=== PATIENT | male | born 1975 | race Hispanic/Latino ===

== ENCOUNTER 2022-09-30 06:31 | Emergency (ER) | payer BC, OTHER ==
[~2022-09-30] VITALS: Ht 172.7 cm; Wt 94.3 kg
[2022-09-30] MEDS ORDERED: KETOROLAC 30MG VIAL (30MG/ML) IVP ONE (08:00)
[2022-09-30] MEDS ORDERED: DIAZEPAM 5 MG/ML 2 ML SYG IVP ONE (08:00)
[2022-09-30] MEDS ORDERED: 0.9%NACL 1000ML 1,000 ML IV ONE (08:00)
[2022-09-30] MEDS ORDERED: FAMOTIDINE 20MG VIAL IV ONE (08:00)
[2022-09-30] MEDS ORDERED: METOCLOPRAMIDE 10 MG/2 ML VIAL IVP ONE (08:00)
[2022-09-30] MEDS ORDERED: MORPHINE 4 MG SYG IVP ONE (10:30)
[2022-09-30] MEDS ORDERED: DEXAMETHASONE SOD PHOSPHATE 4 MG/ML 1ML VIAL IVP ONE (10:30)
[2022-09-30] MEDS ORDERED: CYCL10TA16 PO (10:56)
[2022-09-30] MEDS ORDERED: MELO-106 PO (10:56)
[2022-09-30 11:26] VITALS: BP 132/78; PULSE 78; RESP 18; O2SAT 98
== END 2022-09-30 11:27 | disposition home or self-care (01) ==
LOC: EDH 06:31
DX: M54.41 Lumbago with sciatica, right side (principal)
CPT/HCPCS: 99284; 96374; 96375; 96361; J1100; J3490; J7030; J3360; J2270; J1885; J2765

== ENCOUNTER 2022-10-12 10:19 | Emergency (ER) | payer OTHER ==
[~2022-10-12] VITALS: Ht 172.7 cm; Wt 94.3 kg
[~2022-10-12 10:19] MED LIST: CYCL10TA16 PO; MELO-106 PO
[2022-10-12 10:21] VITALS: BP 143/82; PULSE 75; RESP 20
[2022-10-12] MEDS ORDERED: SOLU-MEDROL 125MG VIAL IM ONE (11:30)
[2022-10-12] MEDS ORDERED: KETOROLAC 60 MG VIAL (30MG/ML) IM ONE (11:30)
[2022-10-12] MEDS ORDERED: IBUP-2077 PO (12:47)
[2022-10-12] MEDS ORDERED: CYCL-309 PO (12:47)
[2022-10-12] MEDS ORDERED: PRED20TA3 PO (12:52)
== END 2022-10-12 12:52 | disposition home or self-care (01) ==
LOC: EDH 10:19
DX: S39.012A Strain of muscle, fascia and tendon of lower back, initial encounter (principal); Z79.899 Other long term (current) drug therapy; X58.XXXA Exposure to other specified factors, initial encounter; Y93.89 Activity, other specified; Y92.89 Other specified places as the place of occurrence of the external cause; Y99.8 Other external cause status
CPT/HCPCS: 99284; 72100; 96372 ×2; J2930; J1885